=== PATIENT | female | born 1990 | race Two or more races ===

== ENCOUNTER 2021-09-14 14:14 | Emergency (ER) | payer SELFPAY ==
[~2021-09-14] VITALS: Ht 165.1 cm; Wt 54.4 kg
[2021-09-14 14:14] VITALS: BP 112/78
== END 2021-09-14 15:45 | disposition left against medical advice (07) ==
LOC: ER 14:14 → EDBD 14:14 → ER 15:45
DX: R10.9 Unspecified abdominal pain (principal); Z53.21 Procedure and treatment not carried out due to patient leaving prior to being seen by health care provider